=== PATIENT | male | born 1990 | race Caucasian/White ===

== ENCOUNTER 2018-04-10 18:38 | Emergency (ER) | payer BC, OTHER ==
[~2018-04-10] VITALS: Ht 170.2 cm; Wt 71.5 kg
[2018-04-10 18:49] VITALS: BP 102/65
[2018-04-10] MEDS ORDERED: SODIUM CHLORIDE FLUSH 10ML SYR IVF ONE (19:30)
[2018-04-10] MEDS ORDERED: DIPH,PERTUSS(ACELL),TET VAC/PF 0.5 ML IM-VACC ONE ×2 (19:30→19:38)
[2018-04-10] MEDS ORDERED: MORPHINE SULFATE 4 MG/ML, 1ML IVPush PRN (19:30)
[2018-04-10] MEDS ORDERED: MORPHINE SULFATE 4 MG/ML, 1ML ONE (19:38)
[2018-04-10 20:45] LABS: CULTURE INDICATED? YES; MICROSCOPIC AUTO
== END 2018-04-10 21:20 | disposition home or self-care (01) ==
LOC: ED 19:00
DX: S42.022A Displaced fracture of shaft of left clavicle, initial encounter for closed fracture (principal); S06.0X1A Concussion with loss of consciousness of 30 minutes or less, initial encounter; S00.83XA Contusion of other part of head, initial encounter; S30.811A Abrasion of abdominal wall, initial encounter; S30.810A Abrasion of lower back and pelvis, initial encounter; S50.312A Abrasion of left elbow, initial encounter; V18.4XXA Pedal cycle driver injured in noncollision transport accident in traffic accident, initial encounter; Y93.55 Activity, bike riding; Y92.488 Other paved roadways as the place of occurrence of the external cause; Y99.8 Other external cause status
CPT/HCPCS: 70450; 71045; 72125; 81001; 87086; 90471; 90715; 96374; 99285